=== PATIENT | male | born 1960 | race Caucasian/White ===

== ENCOUNTER 2019-11-17 10:49 | Observation (INO) | payer OTHER, SELFPAY ==
--- NOTE | ~2019-11-17 | XR_ITS ---
EXAMINATION: XR foot LT min 3V DATE: 11/17/2019 11:15 INDICATION: Left foot infection. TECHNIQUE: 4 views of left foot were obtained. COMPARISON: None. FINDINGS: Bone alignment is normal. No fracture. There is mild osteoarthritis of first metatarsophala ngeal joint and first interphalangeal joint. There are enthesophytes at the posterior and plantar asp ects of calcaneal tuberosity. IMPRESSION: 1. No evidence of osteomyelitis. Reviewed, dictated and finalized at location A.
[2019-11-17 10:54] VITALS: BP 188/92; PULSE 94; RESP 18; TEMP 36.8; O2SAT 100
[2019-11-17 11:20] LABS: Basophils Percent Auto 0.5 % (0.2-1.2); Eosinophils Absolute Auto 0.3 K/mm3 (0-0.3); Eosinophils Percent Auto 3.3 % (0-4.4); Hematocrit 33.3 % (42.0-52.0); Hemoglobin 11.6 g/dL (14.0-18.0); Immature Granulocyte Absolute 0.05 K/mm3 (0.00-0.031); Immature Granulocyte Percent A 0.7 % (0-0.5); Lymphocytes Absolute Auto 1.65 K/mm3 (0.9-3.2); Lymphocytes Percent Auto 21.9 % (18.3-44.2); Mean Corpuscular HGB Conc 34.8 g/dl (32-36); Mean Corpuscular Hemoglobin 29.9 pg (26-34); Mean Corpuscular Volume 85.8 fl (80-100); Mean Platelet Volume 9.9 fl (7.4-10.4); Monocytes Absolute Auto 0.6 K/mm3 (0.1-0.6); Monocytes Percent Auto 7.8 % (2.6-8.5); Neutrophils Absolute Auto 4.9 K/mm3 (1.3-6.7); Neutrophils Percent Auto 65.8 % (45.5-73.1); Platelet Count Result 188 k/mm3 (150-375); Red Blood Count 3.88 M/mm3 (4.6-6.20); Red Cell Distribution Width 12.2 % (11.5-14.5); White Blood Count 7.5 K/mm3 (4.5-10.0)
[2019-11-17] MEDS: ceFAZolin SODIUM 1 GM VIAL IV PUSH (11:21)
[2019-11-17] MEDS: FLUCONAZOLE 150 MG TABLET PO (11:21)
[2019-11-17 11:37] LABS: Alanine Aminotransferase 18 U/L (4-50); Albumin Level 4.3 g/dL (3.5-5.1); Alkaline Phosphatase 84 U/L (38-126); Aspartate Amino Transferase 20 U/L (17-59); Bilirubin,Total 0.3 mg/dL (0.2-1.3); Blood Urea Nitrogen 27 mg/dL (9-20); CRP 1.2 mg/dL (<1.0); Calcium 9.2 mg/dL (8.4-10.2); Carbon Dioxide 27 mmol/L (22-30); Chloride 104 mmol/L (98-107); Estimated CRCL calculation 72 ml/min; Estimated Glomerular Filt Rate > 60; Glucose 227 mg/dL (75-110); Potassium 4.7 mmol/L (3.4-5.0); Sodium 139 mmol/L (137-145)
[2019-11-17] MEDS: SODIUM CHLORIDE 0.9% IV 1,000 ML 999 ML IV CONT (12:03)
--- NOTE | 2019-11-17 12:37 | ED.GENADULT ---
HPI - General Adult General Chief complaint: Wound/Laceration Stated complaint: wounds/toes/diabetic Time Seen by Provider: 11/17/19 10:54 Source: patient and family Mode of arrival: ambulatory Limitations: no limitations History of Present Illness HPI narrative: Patient is a 59-year-old male who presents to emergency department for evaluation of wounds to the left foot involving the first second and third digits patient notes he has had some blistering some itching has some sensation issues given his diabetes and peripheral neuropathy. Patient denies injury or trauma. Patient notes now the redness and swelling are extending up into the foot. Patient notes he has had some chills but denies vomiting. Patient presents per private vehicle has not been seen for this complaint. Patient denies similar occurrence in the past Related Data Home Medications Medication Instructions Recorded Confirmed cyanocobalamin (vitamin B-12) 1,000 mcg PO DAILY 11/17/19 [Vitamin B-12] docusate sodium [Stool Softener] 100 mg PO DAILY PRN 11/17/19 folic acid 1 mg PO DAILY 11/17/19 glimepiride 0.5 mg PO DAILY 11/17/19 glimepiride 1 mg PO DAILY 11/17/19 insulin degludec [Tresiba 18 unit SUBCUT 11/17/19 FlexTouch U-200] metformin 1,000 mg PO DAILY 11/17/19 metformin 500 mg PO DAILY 11/17/19 pregabalin 150 mg PO BID 11/17/19 rosuvastatin 10 mg PO 2XW 11/17/19 tramadol mg PRN 11/17/19 Allergies Allergy/AdvReac Type Severity Reaction Status Date / Time dapagliflozin [From [facility]] Allergy Loss of Verified 11/17/19 10:59 Consciousness Review of Systems Review of Systems: All systems reviewed & are unremarkable except as noted in HPI and below PMFSH Past Medical History Medical History (Updated 11/17/19 @ 12:46 by Eugenio Partida PA-C) Diabetes mellitus Social History Social History (Updated 11/17/19 @ 12:43 by Eugenio Partida PA-C) Smoking status: Never smoker Exam Narrative: Exam Narrative: GENERAL: Well-appearing, well-nourished, and in no acute distress. HEAD: Normocephalic, atraumatic. EYES: PERRLA and EOMI. ENT: Nares clear, no rhinorrhea or epistaxis. Mucous membranes moist. CHEST: Clear to auscultation. No respiratory distress. No wheezes rales or rhonchi HEART: Regular rate and rhythm. No murmur heard. Normal peripheral pulses. EXTREMITIES: Normal range of motion. No edema. SKIN: Warm, dry, patient with erythema and swelling of the first second and third digits of the left foot with swelling extending up into the foot. Several small blisters many of which are ruptured some of which are still intact NEURO: No focal deficits. Alert and oriented x3. Neurovascularly intact PSYCH: Normal mood and affect. Course Course Emergency Course: Patient in the room aware of case findings treatment plan and diagnosis agreeing to stay in hospital will be placed in hospital to the hospitalist service with wound consult. Patient aware of treatment plan agreeing to stay in hospital. Consultations Consultation #1: Case discussed with hospitalist who is agreed to accept the patient Date: 11/17/19 Time: 12:44 Vital Signs Vital signs: Vital Signs Temperature 98.3 F 11/17/19 10:54 Pulse Rate 94 11/17/19 10:54 Respiratory Rate 18 11/17/19 10:54 Blood Pressure 188/92 H 11/17/19 10:54 Pulse Oximetry 100 11/17/19 10:54 Temperature 98.3 F 11/17/19 10:54 Pulse Rate 94 11/17/19 10:54 Respiratory Rate 18 11/17/19 10:54 Blood Pressure 188/92 H 11/17/19 10:54 Pulse Oximetry 100 11/17/19 10:54 Medical Decision Making [facility] Narrative Medical decision making narrative: Patient with likely fungal infection that may be secondarily infected patient with slight dehydration and hyperglycemia noted in his evaluation patient is afebrile nontoxic-appearing will be hydrated placed on sliding scale for his insulin and diabetes management and will also be given antibiotics for the diabetic celluli
--- NOTE | 2019-11-17 13:20 | ADMGEN ---
This patient, Brian Yip, was admitted to Medical Room 340-01. Patient/family oriented to hospital policies and general routines including ID bracelet, bed and alarms, visiting hours, pain management, procedures, bathroom and other care routines, personal items, smoking policy, room service/diet, and visiting hours. Valuables list has been completed. Information on how to activate the Rapid Response Team has been discussed. Patient/Family are encouraged to report perceived risks to care and to ask questions if they do not understand what they are told or what they should do.
[2019-11-17 13:27] VITALS: BMI 28.2
[2019-11-17 14:00] VITALS: BP 178/87; PULSE 80; RESP 14; TEMP 35.8; O2SAT 99
[2019-11-17] MEDS: SODIUM CHLORIDE 0.9% IV 1,000 ML 125 ML IV CONT (14:03)
[2019-11-17 16:36] LABS: Glucose Point of Care 146 (65-105)
[2019-11-17] MEDS: FAMOTIDINE 20 MG/2 ML VIAL IV PUSH (19:52)
--- NOTE | 2019-11-17 21:30 | PM.IMHP ---
H&P: HPI History of Present Illness Chief complaint: Cellulitis left foot Narrative: Brian Yip is a very pleasant 59-year-old gentleman with insulin-dependent type 2 diabetes mellitus with peripheral neuropathy, autonomic dysfunction with history of orthostatic hypotension, and hyperlipidemia who presented to the emergency department earlier today for evaluation of blisters on his left 1st, 2nd, and 3rd toes. Last week he was out working on a deck and sustained an abrasion to the left lateral malleolus. The following day he wore a different pair of shoes that offered him better protection and within a couple of days he noticed that there were blisters on the dorsum of his left 1st, 2nd, and 3rd toes, but only after they popped and were oozing serous fluid. Yesterday he was not feeling very good, mainly with fatigue, chills, and mild sinus congestion. Today his was concerned as she noticed the tissue surrounding the blisters was mildly erythematous and edematous and thought perhaps he had ?COVID toes. He he took a couple of doses of amoxicillin that he had left over and decided it would be best to come in for evaluation. He is resting comfortably at the time my evaluation and has no complaints. Due to his neuropathy he does not have any pain in the toes. He has not had fever or any chills today. He further denies any significant sinus congestion, otalgia, odynophagia, cough, and shortness of breath. He denies sick contacts, recent travel, and exposure to those positive for COVID-19. No history of MRSA. Of note, his blood pressures have been running in the 170s to 180s systolic. He has no history of hypertension and in fact has suffered from orthostatic hypotension, for which she was hospitalized at [facility] for 10 days in December 2018. At that time he was treated with midodrine and fludrocortisone for several months and he has subsequently been able to come off of those medications. He admits to being anxious at this time and believes that his blood pressures are elevated due to such. He denies headache, acute visual changes, and chest pain. Review of Systems Review of Systems: Narrative: Twelve systems were reviewed with pertinent positives and negatives as per HPI. He has an upcoming appointment with his loom tuner as he has noticed that the vision in his left eye has been a bit blurry over the past several months. He has not had any acute visual changes. He wears reading glasses. No polydipsia or polyuria. He denies cough and shortness of breath. No chest pain or palpitations. No hematuria or dysuria. Except as documented, all other systems were reviewed and are negative. [facility] Past Medical History Medical History (Updated 11/17/19 @ 23:29 by Susanne Melendez PA-C) Autonomic dysfunction with type 2 diabetes mellitus With history of orthostatic hypotension requiring prior treatment with midodrine and fludrocortisone. Chronic anemia Colon polyps History of tubular adenomas. Last colonoscopy was in December 2018 at [facility]. Diabetic peripheral neuropathy Dyslipidemia Insulin dependent type 2 diabetes mellitus L1 vertebral fracture No surgical intervention was required. Surgical History Surgical History (Updated 11/17/19 @ 23:25 by Susanne Melendez PA-C) History of vasectomy Family History Family History Father Acute myocardial infarction Hodgkin lymphoma Sibling Brain tumor Social History Social History (Updated 11/17/19 @ 23:25 by Susanne Melendez PA-C) Social History: Surrogate decision maker: Cely Walker, . Code status: Full code. Smoking status: Never smoker Alcohol intake: current Drinks per week: 2 Substance use: never Additional living arrangements comments: Lives with his in [place]. They have 2 grown children. 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
[2019-11-17 21:40] VITALS: BP 186/92; PULSE 84; RESP 16; TEMP 36.2; O2SAT 98
[2019-11-17 22:14] LABS: Glucose Point of Care 166 (65-105)
[2019-11-18 00:13] VITALS: BP 175/81; PULSE 85; RESP 16; TEMP 36.2; O2SAT 99
[2019-11-18 05:15] VITALS: BP 166/82; PULSE 85; RESP 16; TEMP 36.3; O2SAT 95
[2019-11-18 05:46] LABS: Basophils Percent Auto 0.4 % (0.2-1.2); Eosinophils Absolute Auto 0.3 K/mm3 (0-0.3); Eosinophils Percent Auto 3.2 % (0-4.4); Hematocrit 33.1 % (42.0-52.0); Hemoglobin 11.4 g/dL (14.0-18.0); Immature Granulocyte Absolute 0.06 K/mm3 (0.00-0.031); Immature Granulocyte Percent A 0.7 % (0-0.5); Lymphocytes Percent Auto 17.4 % (18.3-44.2); Mean Corpuscular HGB Conc 34.4 g/dl (32-36); Mean Corpuscular Hemoglobin 29.2 pg (26-34); Mean Corpuscular Volume 84.9 fl (80-100); Mean Platelet Volume 9.7 fl (7.4-10.4); Monocytes Absolute Auto 0.7 K/mm3 (0.1-0.6); Monocytes Percent Auto 7.9 % (2.6-8.5); Neutrophils Absolute Auto 6.5 K/mm3 (1.3-6.7); Neutrophils Percent Auto 70.4 % (45.5-73.1); Platelet Count Result 173 k/mm3 (150-375); White Blood Count 9.2 K/mm3 (4.5-10.0)
[2019-11-18 05:55] LABS: Hemoglobin A1C 7.7 % (<5.7)
[2019-11-18] MEDS: ONDANSETRON INJ 4 MG/2 ML VIAL IV PUSH (06:03)
[2019-11-18 06:05] LABS: Blood Urea Nitrogen 18 mg/dL (9-20); Calcium 8.9 mg/dL (8.4-10.2); Carbon Dioxide 28 mmol/L (22-30); Chloride 102 mmol/L (98-107); Estimated CRCL calculation 72 ml/min; Estimated Glomerular Filt Rate > 60; Glucose 201 mg/dL (75-110); Potassium 4.4 mmol/L (3.4-5.0); Sodium 138 mmol/L (137-145)
[2019-11-18 07:58] LABS: Glucose Point of Care 200 (65-105)
[2019-11-18] MEDS: FOLIC ACID 1 MG TABLET PO (08:09)
[2019-11-18] MEDS: CYANOCOBALAMIN 1,000 MCG TABLET 1000 MCG PO (08:09)
[2019-11-18] MEDS: PREGABALIN 75 MG CAPSULE 150 MG PO ×2 (08:14→16:49)
[2019-11-18] MEDS: INSULIN ASPART (*BKC) 100 UNITS/ML SUB-Q (11:41)
[2019-11-18 11:46] LABS: Glucose Point of Care 222 (65-105)
--- NOTE | 2019-11-18 12:40 | PHAR ---
The patient's home med of Insulin Degludec [Tresiba Flextouch U-200] has been verified.
--- NOTE | 2019-11-18 14:30 | PM.IMPN ---
Progress Note: A&P Assessment and Plan (1) Cellulitis of left toe: Code(s): L03.032 - Cellulitis of left toe Status: Acute Assessment and Plan: -----patient was started on imipenem and vancomycin for antibiotic stewardship recommendations. The vancomycin was 1st given at 1:00 a.m. this morning so it is recommended that he at least have 24 hours of IV antibiotics before switching to oral. X-ray does not show any evidence of osteomyelitis and wound care saw the patient and agrees that osteomyelitis is not likely. He will likely be able to go home on oral antibiotics tomorrow as long as he continues to improve. There were no blood cultures drawn on admission but the patient CRP and white blood cell count is normal so bacteremia is less likely. Like a wound culture was ordered in the ER but I do not know if it has been collected as is still says ordered . If this was not done in the ED it will be cancelled because there is no draining anymore to the area and it would likely only yield skin contaminates. (2) Elevated blood pressure reading: Code(s): R03.0 - Elevated blood-pressure reading, without diagnosis of hypertension Status: Acute Assessment and Plan: -----Pt has a long hx of autonomic dysfunction and orthostatic hypotension which in the past required hospitalization and salt tabs as well as medication to keep his bp up. For now I will just watch the trend and have him follow up with his primary for this since he has had a long hx of this. (3) Insulin dependent type 2 diabetes mellitus: Code(s): E11.9 - Type 2 diabetes mellitus without complications; Z79.4 - terminal carman (current) use of insulin Status: Acute Assessment and Plan: -----Continue basal insulin (decreased from home dose) and SSI. (4) Chronic anemia: Code(s): D64.9 - Anemia, unspecified Status: Acute Assessment and Plan: -----stable. Time Spent With Patient Time with patient: 25 - 35 minutes Subjective Date/time seen: 11/18/19 14:30 Interval history: Pt is a 59-year-old male here for cellulitis of his left toes. Patient was seen today and states that his erythema and wound looks a little bit better today. at bedside states that she also thinks they look better but is very concerned with them. We had a long discussion with wound care at bedside on how to treat wounds and to prevent new ones. The patient states that on Monday he started feeling bad with fatigue and chills but those have improved. He denies chest pain, shortness of breath, fevers, chills, nausea, vomiting, diarrhea or constipation. He is eating and drinking well. He says his last A1c was 6 something and 7.7 is higher than his normal. Review of Systems Review of Systems: All systems reviewed & are unremarkable except as noted in HPI and below Exam Narrative: Exam Narrative: General: Well developed well nourished patient resting comfortably in bed in no acute distress HEENT: normocephalic Neck: supple Neuro: Alert and oriented x4 CV:RRR Resp:CTA Abd: Soft, non distended. No pain to palpation. Positive bowel sounds Extremities: Warm and dry. There are shallow ulcerations was surrounding erythema to the 1st 2nd 3rd toes on the left foot. The 2nd toe has an open wound that is small and not to the bone just yet. He also has a small wound on the left lateral ankle with some swelling. Right foot normal. Objective Data Vital Signs Vital Signs: Vital Signs - 24 hr 11/17/19 21:40 11/18/19 00:13 11/18/19 05:15 Temperature 97.2 F L 97.1 F L 97.4 F L Pulse Rate 84 85 85 Respiratory Rate 16 16 16 Blood Pressure 186/92 H 175/81 H 166/82 H Pulse Oximetry 98 99 95 Intake/Output Intake/Output: Intake & Output 11/15/19 11/16/19 11/17/19 11/18/19 23:59 23:59 23:59 23:59 Intake Total 1075 1520 Output Total 300 3275 Balance 5461 -8044 Meds/Results Medications: Active Medic
[2019-11-18 14:35] VITALS: BP 111/73; PULSE 89; RESP 18; TEMP 36.3; O2SAT 100
[2019-11-18] MEDS: SILVERGEL (ELTA) 45 ML 1 APPLIC TOPICAL (16:42)
[2019-11-18 16:46] LABS: Glucose Point of Care 171 (65-105)
[2019-11-18 20:30] VITALS: BP 153/87; PULSE 85; RESP 18; TEMP 36.2; O2SAT 99
[2019-11-18] MEDS: ROSUVASTATIN 10 MG TABLET PO (21:50)
[2019-11-18 21:52] LABS: Glucose Point of Care 190 (65-105)
[2019-11-18 22:00] VITALS: PULSE 85; RESP 18; O2SAT 99
[2019-11-19 01:29] LABS: Vancomycin Trough 12.9 ug/mL (10.0-20.0)
[2019-11-19 05:39] VITALS: BP 158/88; PULSE 90; RESP 16; TEMP 36.6; O2SAT 97
[2019-11-19 08:07] LABS: Glucose Point of Care 182 (65-105)
[2019-11-19] MEDS: CYANOCOBALAMIN 1,000 MCG TABLET 1000 MCG PO (08:17)
[2019-11-19] MEDS: FOLIC ACID 1 MG TABLET PO (08:17)
[2019-11-19] MEDS: SILVERGEL (ELTA) 45 ML 1 APPLIC TOPICAL (08:18)
[2019-11-19] MEDS: PREGABALIN 75 MG CAPSULE 150 MG PO (08:18)
--- NOTE | 2019-11-19 10:57 | PM.DS ---
DS: Admitting Diagnosis Admitting Diagnosis Admitting Diagnosis: Cellulitis of left toe DS: Discharge Diagnosis Discharge Diagnosis (1) Cellulitis of left toe: Code(s): L03.032 - Cellulitis of left toe Status: Acute Assessment and Plan: Date of Service 11/19/19 Mr. Yip is a pleasant 59yo M with history of insulin dependent type 2 DM and chronic anemia who presented to the ED for evaluation of left foot wound. He had multiple shallow, healing blisters to dorsal left 1st, 2nd, 3rd toes with surrounding cellulitis. XR shows no evidence of osteomyelitis. He was treated with IV imipenem and vancomycin per the antibiotic stewardship recommendations. He was also seen by wound RN and treated with silvergel with light gauze wrap dressings. Once the area showed clinical improvement with IV antibiotics, he was discharged with oral antibiotics to complete the course. He has an upcoming appointment already with PCP for follow up. He also follows with endocrinology for DM and will continue following with her. Blood pressures were a bit elevated here. He was not started on any antihypertensives due to a history of orthostatic hypotension/autonomic dysfunction when he was hospitalized at [facility] last year. He prefers to wait and discuss blood pressure with PCP which I feel is reasonable given his history. He was clinically improved with the therapy outlined above and hemodynamically stable for discharge 11/19/19 with oral abx and instructions to follow up with PCP. (2) Elevated blood pressure reading: Code(s): R03.0 - Elevated blood-pressure reading, without diagnosis of hypertension Status: Acute Assessment and Plan: Pt has a long hx of autonomic dysfunction and orthostatic hypotension which in the past required hospitalization and salt tabs as well as medication to keep his pressures up. Follow up with PCP. (3) Insulin dependent type 2 diabetes mellitus: Code(s): E11.9 - Type 2 diabetes mellitus without complications; Z79.4 - longterm (current) use of insulin Status: Acute Assessment and Plan: He has a unique home regimen of sliding scale glimepiride from endocrinology so he will continue with this and monitor his blood sugars regularly. Discussed the importance of tight glycemic control for wound healing. (4) Chronic anemia: Code(s): D64.9 - Anemia, unspecified Status: Acute Assessment and Plan: Stable. DS: Summary Time Spent with Patient Time attestation: Total time spent providing and/or coordinating discharge services: 35 min Exam Narrative: Exam Narrative: Last Vital Signs Temp 97.9 F 11/19/19 05:39 Pulse 90 11/19/19 05:39 Resp 16 11/19/19 05:39 BP 158/88 H 11/19/19 05:39 Pulse Ox 97 11/19/19 05:39 General: Well developed well nourished patient resting comfortably in bed in no acute distress HEENT: EOMI, oral mucosa moist Neck: supple Neuro: Alert and oriented x4 CV:RRR Resp:CTA Abd: Soft, non distended. No pain to palpation. Positive bowel sounds Extremities: Warm and dry. There are shallow ulcerations was surrounding erythema to the 1st 2nd 3rd toes on the left foot. The 2nd toe has an open wound. He also has a small wound on the left lateral ankle with some swelling. Right foot normal. DS: Data Data Completed and Pending Labs on day of discharge: Labs from last 24 hours 11/19/19 11/19/19 11/18/19 08:02 00:24 21:48 POC Capillary Glucose 182 H 190 H Vancomycin Trough 12.9 11/18/19 11/18/19 16:43 11:39 POC Capillary Glucose 171 H 222 H Vancomycin Trough Imaging Radiologist's impression: ITS Impressions Foot X-Ray 11/17/19 11:19 IMPRESSION:
[2019-11-19] MEDS: INSULIN ASPART (*BKC) 100 UNITS/ML SUB-Q (11:33)
[2019-11-19 11:41] LABS: Glucose Point of Care 235 (65-105)
== END 2019-11-19 14:00 | disposition home or self-care (01) ==
LOC: ANHED 12:51 → ANH3MED 13:15
PROVIDERS: Emergency Medicine Emergency Medical Services; Physician Assistant; Admitting Provider Family Medicine; Emergency Provider Emergency Medicine; PCP Family Medicine; Visit Provider Hospitalist
DX: L03.032 Cellulitis of left toe (principal); R03.0 Elevated blood-pressure reading, without diagnosis of hypertension; E11.43 Type 2 diabetes mellitus with diabetic autonomic (poly)neuropathy; D64.9 Anemia, unspecified; E78.5 Hyperlipidemia, unspecified; Z79.4 Long term (current) use of insulin; Z79.84 Long term (current) use of oral hypoglycemic drugs
CPT/HCPCS: 36415; 73630; 80048; 80053; 80202; 83036; 85025; 86140; 96361; 96365; 96366; 96367; 96375; 99285; A9270; G0378; J0690; J0743; J1815; J2405; J3370; J7030

== ENCOUNTER 2022-10-01 10:29 | Emergency (ER) | payer OTHER, SELFPAY ==
[2022-10-01 10:43] VITALS: BP 204/91; PULSE 88; RESP 12; TEMP 36.9; O2SAT 100
--- NOTE | 2022-10-01 10:44 | PC.NURSE ---
PATIENT BP IS 204/91, PT STATED HE HAS HIGH BP AND DID NOT TAKE HIS MEDICATION TODAY
--- NOTE | 2022-10-01 11:20 | ED.EXTPRO ---
HPI - Extremity Problem General Chief complaint: Extremity Problem,Nontraumatic Stated complaint: Right Foot Pain Time Seen by Provider: 10/01/22 11:20 Source: patient, RN notes reviewed and old records reviewed Mode of arrival: ambulatory Limitations: no limitations History of Present Illness HPI Narrative: 62 year old male who presents to express care with concern for possible cellulitis to his right great toe with blister noted between his great toe and 1st toe that appears to of broken, no drainage noted. Patient has some redness and swelling to his right great toe. Patient is diabetic and has had history of previous cellulitis. Patient reports that he was mowing on a hill and he thinks that his foot was moving around in his shoe and caused rubbing of right great toe causing blister and redness and swelling of great toe. Patient reports that he has had previous cellulitis of foot and is diabetic. Right great toe soaked in antiseptic soap and water for 15 minutes, triple antibiotic ointment Telfa gauze and Coban. MD Complaint: other (redness swelling right great toe with broken blister between 1st and 2nd toe) Onset (ago): day(s) (last evening) Severity scale (1-10): 3 Exacerbating factors: weight bearing Related Data Home Medications Medication Instructions Recorded Confirmed cyanocobalamin (vitamin B-12) 1,000 mcg PO DAILY 11/17/19 10/01/22 1,000 mcg tablet (Vitamin B-12) docusate sodium 100 mg tablet 100 mg PO DAILY PRN Constipation 11/17/19 10/01/22 (Stool Softener) folic acid 1 mg tablet 1 mg PO DAILY 11/17/19 10/01/22 glimepiride 1 mg tablet 0.5 mg PO DAILY 11/17/19 10/01/22 glimepiride 1 mg tablet 1 mg PO DAILY 11/17/19 10/01/22 insulin degludec 200 unit/mL (3 18 unit subcut HS 11/17/19 10/01/22 mL) subcutaneous pen (Tresiba FlexTouch U-200 insulin) metformin 1,000 mg tablet 1,000 mg PO HS 11/17/19 10/01/22 metformin 500 mg tablet 500 mg PO AC 11/17/19 10/01/22 pregabalin 150 mg capsule 150 mg PO BID 11/17/19 10/01/22 rosuvastatin 10 mg tablet 10 mg PO 2XW 11/17/19 10/01/22 tramadol 50 mg tablet 50 mg PO BID PRN Pain 11/17/19 10/01/22 losartan 50 mg tablet 50 mg PO DAILY 10/01/22 10/01/22 Allergies Allergy/AdvReac Type Severity Reaction Status Date / Time dapagliflozin [From [facility]] AdvReac Hypotension Verified 10/01/22 10:33 Review of Systems Review of Systems: CONSTITUTIONAL: Denies fever, chills, or sweats. CARDIOVASCULAR: Denies chest pain, palpitations, or edema. RESPIRATORY: Denies cough or dyspnea. GASTROINTESTINAL: Denies abdominal pain, nausea, vomiting SKIN: Reports redness and swelling of right great toe with broken blister to lateral aspect of toe with no drainage. MUSCULOSKELETAL: Denies myalgia. NEUROLOGIC: Denies headache, numbness All systems reviewed & are unremarkable except as noted in HPI and below PMFSH Past Medical History Medical History Autonomic dysfunction with type 2 diabetes mellitus With history of orthostatic hypotension requiring prior treatment with midodrine and fludrocortisone. Chronic anemia Colon polyps History of tubular adenomas. Last colonoscopy was in December 2018 at [facility]. Diabetic peripheral neuropathy Dyslipidemia Insulin dependent type 2 diabetes mellitus L1 vertebral fracture No surgical intervention was required. Surgical History Surgical History History of vasectomy Family History Family History Father Acute myocardial infarction Hodgkin lymphoma Sibling Brain tumor Social History Social History Social History: Surrogate decision maker: Cely Walker, . Code status: Full code. Smoking status: Never smoker Alcohol intake: current Drinks per week: 2 Substance use: never Additional living arrangement
[2022-10-01 11:56] VITALS: BP 167/99; PULSE 77; RESP 20
== END 2022-10-01 12:10 | disposition home or self-care (01) ==
PROVIDERS: Emergency Provider Registered Nurse; PCP Family Medicine
DX: L03.031 Cellulitis of right toe (principal); E11.42 Type 2 diabetes mellitus with diabetic polyneuropathy; Z79.4 Long term (current) use of insulin; E78.5 Hyperlipidemia, unspecified; Z98.52 Vasectomy status
CPT/HCPCS: 99213; G0463

== ENCOUNTER 2023-12-22 09:13 | Outpatient (CLI) | payer OTHER, SELFPAY ==
--- NOTE | ~2023-12-22 | US_ITS ---
US renal BI 12/22/2023 09:35 Procedure: Realtime transabdominal ultrasound of the kidneys and bladder. Indication: Chronic kidney disease Comparison: No prior studies for comparison. Findings: Renal echotexture is normal bilaterally without hydronephrosis, contour deforming mass or r enal calculus. The right kidney measures 11.2 cm and left kidney measures 13.4 cm. Bladder within no rmal limits. Impression: 1: Unremarkable renal ultrasound. No stones, masses or hydronephrosis. Reviewed, dictated and finalized at location B. Impression: 1: Unremarkable renal ultrasound. No stones, masses or hydronephrosis.
== END 2023-12-22 09:14 ==
LOC: MICIMG 09:16
PROVIDERS: PCP Nurse Practitioner Family; Visit Provider Internal Medicine Nephrology
DX: R80.1 Persistent proteinuria, unspecified (principal); E11.22 Type 2 diabetes mellitus with diabetic chronic kidney disease; E11.3593 Type 2 diabetes mellitus with proliferative diabetic retinopathy without macular edema, bilateral; E78.00 Pure hypercholesterolemia, unspecified; I12.9 Hypertensive chronic kidney disease with stage 1 through stage 4 chronic kidney disease, or unspecified chronic kidney disease; N18.30 Chronic kidney disease, stage 3 unspecified
CPT/HCPCS: 76775